=== PATIENT | female | born 1990 | race Caucasian/White ===

== ENCOUNTER 2019-07-29 13:19 | Emergency (ER) | payer OTHER ==
[~2019-07-29] VITALS: Ht 162.6 cm; Wt 93.0 kg
--- NOTE | 2019-07-29 13:20 | NUR ---
PT PLACED IN BED 9 BY EMS.
[2019-07-29 13:27] VITALS: BP 97/58
[2019-07-29] MEDS ORDERED: IBUPROFEN 800 MG TAB PO ONE (13:30)
[2019-07-29] MEDS ORDERED: ACETAMINOPHEN EXTRA STRENGTH 500 MG TAB PO ONE (13:30)
--- NOTE | 2019-07-29 13:34 | NUR ---
MOTRIN AND TYLENOL ADMINISTERED PO FOR PT FEVER. 102 ORALLY AT THIS TIME.
--- NOTE | 2019-07-29 13:35 | NUR ---
C/O FEVER X 3 DAYS. PT ADDS N/V, HEADACHE, BODY ACHES 7/10, AND CHILLS X THIS AM. ORAL TEMP 102 UPON TRIAGE. LAST DOSE OF TYLENOL AT 0300 AM. PT DENIES AB PAIN. 1 EPISODE OF EMESIS THIS AM, DENIES PRESENCE OF BLOOD. PT ALERT AND AWAKE. AMBULATORY WITH STEADY GAIT. BED IS DOWN, LOCKED, BED RAIL X 1, ERMD TO SEE PT. PMH- GAVE VAGINAL APPROX 4 WEEKS AGO, FULL TERM WITH NO COMPLICATIONS
--- NOTE | 2019-07-29 13:39 | NUR ---
DR LINDA AT BEDSIDE
--- NOTE | 2019-07-29 13:50 | NUR ---
FLU SWAB COLLECTED
--- NOTE | 2019-07-29 16:15 | NUR ---
PT STATES PAIN IS A 5/10 WITH SOME RELIEF. LIGHTS DIMMED FOR PTS COMFORT.
[2019-07-29 16:29] VITALS: BP 105/63
--- NOTE | 2019-07-29 16:29 | NUR ---
Patient discharged with v/s stable. Written and verbal after care instructions given and explained REGARDING A VIRAL ILLNESS. Patient alert, oriented and verbalized understanding of instructions. Ambulatory with steady gait. All questions addressed prior to discharge. ID band removed. Patient advised to follow up with PMD. Rx of CODEINE/PROMETHAZINE HYDROCLORIDE AND IBUPROFEN given. Patient educated on indication of medication including possible reaction and side effects. Opportunity to ask questions provided and answered.
== END 2019-07-29 16:29 | disposition home or self-care (01) ==
LOC: MED 13:19
DX: R50.9 Fever, unspecified (principal)
CPT/HCPCS: 87804; 99283